=== PATIENT | male | born 1980 | race Caucasian/White ===

== ENCOUNTER 2017-01-16 12:25 | Inpatient (IN) | payer OTHER ==
[2017-01-16 15:21] VITALS: BMI 21.9
--- NOTE | 2017-01-16 17:03 | HP ---
COWS - Scale Resting Pulse: 4= HI > 121 Sweatin=Flushed/Facial Moisture Restless Observation: 3= Extraneous Movement Pupil Size: 2= Moderately Dilated Bone or Joint Aches: 2= Severe Diffuse Aches Runny Nose/ Eye Tearin= Runny Nose/Eyes GI Upset > 30mins: 3= Vomiting/Diarrhea Tremor Observation: 2= Slight Tremor Visible Yawning Observation: 2= >3x During Session Anxiety or Irritability: 2=Irritable/Anxious Goose Flesh Skin: 0=Smooth Skin COWS Score: 24 CIWA Score - CIWA Score Nausea/Vomitin Muscle Tremors: 3 Anxiety: 3 Agitation: 3 Paroxysmal Sweats: 2 Orientation: 0-Oriented Tacttile Disturbances: 2-Mild Itch/Numbness/Burn Auditory Disturbances: 2-Mild Harshness/Frighten Visual Disturbances: 2-Mild Sensitivity Headache: 2-Mild CIWA-Ar Total Score: 22 Admission ROS S - HPI Chief Complaint: i ma here for detox from heroin,cocaine,alcohol,xanax Allergies/Adverse Reactions: Allergies Allergy/AdvReac Type Severity Reaction Status Date / Time No Known Allergies Allergy Verified 01/16/17 16:55 History of Present Illness: this 36 years old male with heroin,alcohol,cocaine,xanax dependence,withdrawal symptom,[id number] admissions in detox,syncope no significant period of sobriety Exam Limitations: No Limitations - Ebola screening Have you traveled outside of the country in the last 21 days: No Have you had contact with anyone from an Ebola affected area: No Have you been sick,other than usual withdrawal symptoms: No - Review of Systems Constitutional: Chills, Diaphoresis, Loss of Appetite, Malaise, Night Sweats, Changes in sleep, Weakness, Unintentional Wgt. Loss EENT: reports: Tearing, Nose Congestion Respiratory: reports: No Symptoms reported Cardiac: reports: Palpitations GI: reports: Blood Streaked Bowels, Diarrhea, Vomiting, Abdominal cramping : reports: No Symptoms Reported Musculoskeletal: reports: Back Pain, Joint Pain, Muscle Pain, Joint Stiffness Integumentary: reports: Dryness Neuro: reports: Headache, Tremors Endocrine: reports: No Symptoms Reported Hematology: reports: No Symptoms Reported Psychiatric: reports: Mood/Affect Appropiate (ptsd), Anxious, Depressed Other Systems: Reviewed and Negative Patient History - Patient Medical History Hx Anemia: No Hx Asthma: No Hx Chronic Obstructive Pulmonary Disease (COPD): No Hx Cancer: No Hx Cardiac Disorders: No Hx Congestive Heart Failure: No Hx Hypertension: No Hx Hypercholesterolemia: No Hx Pacemaker: No HX Cerebrovascular Accident: No Hx Seizures: No Hx Dementia: No Hx Diabetes: No Hx Gastrointestinal Disorders: No Hx Liver Disease: No Hx Genitourinary Disorders: No Hx Sexually Transmitted Disorders: No Hx Renal Disease (ESRD): No Hx Thyroid Disease: No Hx Human Immunodeficiency Virus (HIV): No (last tested 09/03 negative) Hx Hepatitis C: No Hx Depression: No Hx Suicide Attempt: No Hx Bipolar Disorder: No Hx Schizophrenia: No Other Medical History: ptsd,no suicidal,no homicidal,varicose veins both legs - Patient Surgical History Past Surgical History: Yes Hx Neurologic Surgery: No Hx Cataract Extraction: No Hx Cardiac Surgery: No Hx Lung Surgery: No Hx Breast Surgery: No Hx Breast Biopsy: No Hx Abdominal Surgery: No Hx Appendectomy: No Hx Cholecystectomy: No Hx Genitourinary Surgery: No Hx Section: No Hx Orthopedic Surgery: No Other Surgical History: VARICOSE VEIN STRIPPING 2012 both Anesthesia Reaction: No - PPD History Previous Implant?: Yes Documented Results: Negative w/o proof Implanted On Prior [facility] Admission?: Yes Date: 11/16/15 Results: 0 PPD to be Administered?: Yes - Smoking Cessation Smoking history: Current every day smoker Have you smoked in the past 12 months: Yes Aproximately how many cigarettes per day: 20 Cigars Per Day: 0 Hx Chewing Tobacco Use: No Initiated information on smoking cessation: Yes 'Breaking Loose' booklet given: 01/16/17 - Substance & Tx. History Hx Alcohol Use: Yes Hx Substance Use: Yes Substance Use Type: Alcohol, Cocaine, Heroin, Tranquilizers Hx Substance Use Treatment: Yes ([facility] 2016) - Substances Abused Heroin Route: Injection Frequency: Daily Amount used: 20 bags Age of first use: 24 Date of Last Use: 01/16/17 Cocaine Route: Injection Frequency: Daily Amount used: 10 bags Age of first use: 19 Date of Last Use: 01/16/17 Alprazolam (Xanax) Route: Oral Frequency: Daily Amount used: 5-6 pills Age of first use: 16 Date of Last Use: 01/15/17 Alcohol Route: Oral Frequency: Daily Amount used: 2 12 oz beers Age of first use: 15 Date of Last Use: 01/14/17 Family Disease History - Family Disease History Family History: Denies Admission Physical Exam [facility] - Vital Signs Vital Signs: Vital Signs - 24 hr 01/16/17 15:19 Temperature 97 F L Pulse Rate 129 H Respiratory 20 Rate Blood Pressure 112/89 - Physical General Appearance: Yes: Moderate Distress, Tremorous, Irritable, Sweating, Anxious HEENTM: Yes: Within Normal Limits, Normal ENT Inspection, MIKE, Pharynx Normal Respiratory: Yes: Lungs Clear, Normal Breath Sounds, No Respiratory Distress Neck: Yes: Within Normal Limits, Supple, Trachea in good position Breast: Yes: Within Normal Limits Cardiology: Yes: Within Normal Limits, Tachycardia Abdominal: Yes: Within Normal Limits, Normal Bowel Sounds, Non Tender, Flat, Soft Genitourinary: Yes: Within Normal Limits Back: Yes: Normal Inspection, CVA Tenderness (R), Muscle Spasm Musculoskeletal: Yes: Back pain, Joint Stiffness, Muscle Pain Extremities: Yes: Normal Inspection, Normal Range of Motion, Tremors Neurological: Yes: fermentologist II-XII NML intact, Alert, Motor Strength 5/5 Integumentary: Yes: Within Normal Limits, Dry Lymphatic: Yes: Within Normal Limits - Diagnostic (1) Cocaine dependence Current Visit: No Status: Acute (2) Hepatitis C Current Visit: No Status: Acute (3) Opioid dependence with withdrawal Current Visit: No Status: Acute (4) Uncomplicated sedative, hypnotic or anxiolytic withdrawal Current Visit: No Status: Acute (5) Weight decreased Current Visit: No Status: Acute (6) Alcohol dependence with uncomplicated withdrawal Current Visit: Yes Status: Acute (7) Nicotine dependence Current Visit: Yes Status: Acute Cleared for Admission [facility] - Detox or Rehab [facility] Level of Care: Medically Managed Detox Regimen/Protocol: Methadone/Valium [facility] Breath Alcohol Content Breath Alcohol Content: 0 Urine Drug Screen - Results Drug Screen Negative: No Urine Drug Screen Results: TOMÁS-Cocaine, OPI-Opiates, MET-Methamphetamine, MTD- Methadone
[2017-01-16] MEDS ORDERED: guaiFENesin/D-METHORPHAN HB 10 ML UNIT-DOSE CUPS PO PRN (17:19)
[2017-01-16] MEDS ORDERED: MENTHOL/PHENOL 1 EACH UD MM PRN (17:19)
[2017-01-16] MEDS ORDERED: MAGNESIUM HYDROX 2400MG/30ML ORAL SUSPENSION 30 ML CUP PO PRN (17:19)
[2017-01-16] MEDS ORDERED: P-EPHED 60MG/TRIPROLIDI 2.5MG TABLET PO PRN (17:19)
[2017-01-16] MEDS ORDERED: LOPERAMIDE HCL 2 MG CAPSULE PO PRN (17:19)
[2017-01-16] MEDS ORDERED: MAGNESIUM CITRATE 300 ML BOTTLE PO PRN (17:19)
[2017-01-16] MEDS ORDERED: METHADONE HCL 10 MG TABLET (FOR DETOX USE ONLY) PO ONE ×2 (17:19→23:00)
[2017-01-16] MEDS ORDERED: MAG HYDROX/AL HYDROX/SIMETH 30 ML UNIT-DOSE CUP PO PRN (17:19)
[2017-01-16] MEDS ORDERED: diazePAM 5 MG TABLET PO ONE (18:00)
[2017-01-16] MEDS: THIAMINE HCL 100 MG TABLET (FP) PO SCH (22:15)
[2017-01-16] MEDS: diazePAM 5 MG TABLET PO SCH (22:15)
[2017-01-17] MEDS: diazePAM 5 MG TABLET PO SCH ×3 (05:37→22:03)
[2017-01-17] MEDS: PRENATAL VITAMINS W/ FOLIC ACID TABLET (FP) PO SCH (09:51)
[2017-01-17] MEDS: diazePAM 5 MG TABLET PO PRN ×2 (09:51→17:41)
--- NOTE | 2017-01-17 09:54 | EKG ---
Test Reason : Blood Pressure : / mmHG Vent. Rate : 079 BPM Atrial Rate : 079 BPM P-R Int : 132 ms QRS Dur : 086 ms QT Int : 378 ms P-R-T Axes : 055 038 040 degrees QTc Int : 433 ms NORMAL SINUS RHYTHM POSSIBLE LEFT ATRIAL ENLARGEMENT NO PREVIOUS ECGS AVAILABLE Confirmed by MARYBETH BURNETT MD ([id number]) on 01/17/2017 9:54:21 AM Referred By: Confirmed By:MARYBETH BURNETT MD
[2017-01-17] MEDS ORDERED: METHADONE HCL 10 MG TABLET (FOR DETOX USE ONLY) PO SCH (10:00)
--- NOTE | 2017-01-17 10:16 | PN ---
[facility] CIWA - CIWA Score Nausea/Vomitin-No Nausea/No Vomiting Muscle Tremors: 4-Moderate,w/Arms Extend Anxiety: 4-Mod. Anxious/Guarded Agitation: 4-Moderately Restless Paroxysmal Sweats: 1-Minimal Palms Moist Orientation: 0-Oriented Tacttile Disturbances: 3-Moderate Itch/Numb/Burn Auditory Disturbances: 0-None Visual Disturbances: 0-None Headache: 0-None Present CIWA-Ar Total Score: 16 BHS COWS - Scale Resting Pulse: 0= [place] 80 or Below Sweatin= Chills/Flushing Restless Observation: 3= Extraneous Movement Pupil Size: 2= Moderately Dilated Bone or Joint Aches: 4=Acute Joint/Muscle Pain Runny Nose/ Eye Tearin= Nasal Congestion GI Upset > 30mins: 1= Stomach Cramp Tremor Observation of Outstretched Hands: 2= Slight Tremor Visible Yawning Observation: 1= 1-2x During Session Anxiety or Irritability: 2=Irritable/Anxious Goose Flesh Skin: 0=Smooth Skin COWS Score: 17 S Progress Note (SOAP) Subjective: ANXIETY,TREMORS,SWEATS,INTERMITTENT SLEEP Objective: 01/17/17 10:15 Vital Signs Temperature 97 F L 01/17/17 06:43 Pulse Rate 53 L 01/17/17 06:43 Respiratory Rate 16 01/17/17 06:43 Blood Pressure 92/65 01/17/17 06:43 O2 Sat by Pulse Oximetry (%) LABS PENDING Assessment: 01/17/17 10:15 WITHDRAWAL SX Plan: CONTINUE DETOX
[2017-01-17 10:25] LABS: MCH 29.5 pg (25.7-33.7); MCHC 33.4 g/dl (32.0-35.9); MEAN CELL VOLUME 88.3 fl (80-96); MEAN PLT VOLUME 8.5 fl (7.5-11.1); PLATELET COUNT 166 K/MM3 (134-434); RDW 13.6 % (11.9-15.9); WHITE BLOOD COUNT 6.7 K/mm3 (4.0-10.0)
[2017-01-17 10:32] LABS: ALBUMIN 3.4 g/dl (3.4-5.0); ANION GAP 8 (8-16); CALCIUM 8.7 mg/dL (8.5-10.1); CO2 30 mmol/L (21-32); COCKROFT - GAULT 84.99; CREATININE 1.1 mg/dL (0.7-1.3); GLUCOSE,RANDOM 106 mg/dL (74-106); SGOT/AST 17 U/L (15-37); SGPT/ALT 22 U/L (12-78)
[2017-01-17 10:34] LABS: ALK PHOS 58 U/L (45-117); BILIRUBIN,TOTAL 0.3 mg/dL (0.2-1.0)
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
[2017-01-17] MEDS: ACETAMINOPHEN 325 MG TABLET (FP) PO PRN (13:13)
[2017-01-17] MEDS: THIAMINE HCL 100 MG TABLET (FP) PO SCH (22:03)
[2017-01-18] MEDS: diazePAM 5 MG TABLET PO PRN ×3 (05:35→16:55)
[2017-01-18] MEDS: IBUPROFEN 400 MG TABLET (FP) PO PRN (05:55)
[2017-01-18] MEDS: PRENATAL VITAMINS W/ FOLIC ACID TABLET (FP) PO SCH (10:01)
[2017-01-18] MEDS: diazePAM 5 MG TABLET PO SCH ×2 (10:01→22:29)
[2017-01-18] MEDS: METHADONE HCL 5 MG TABLET (FOR DETOX USE ONLY) PO SCH (10:02)
--- NOTE | 2017-01-18 15:58 | PN ---
S CIWA - CIWA Score Nausea/Vomitin-No Nausea/No Vomiting Muscle Tremors: 3 Anxiety: 4-Mod. Anxious/Guarded Agitation: 1-Slight > Activity Paroxysmal Sweats: 4-Forehead w/Sweat Beads Orientation: 2-Disoriented Date<2 days Tacttile Disturbances: 0-None Auditory Disturbances: 0-None Visual Disturbances: 2-Mild Sensitivity Headache: 3-Moderate CIWA-Ar Total Score: 19 BHS COWS - Scale Resting Pulse: 0= [place] 80 or Below Sweatin=Flushed/Facial Moisture Restless Observation: 1= Difficult to Sit Still Pupil Size: 0= Normal to Room Light Bone or Joint Aches: 2= Severe Diffuse Aches Runny Nose/ Eye Tearin= Runny Nose/Eyes GI Upset > 30mins: 1= Stomach Cramp Tremor Observation of Outstretched Hands: 2= Slight Tremor Visible Yawning Observation: 2= >3x During Session Anxiety or Irritability: 2=Irritable/Anxious Goose Flesh Skin: 0=Smooth Skin COWS Score: 14 S Progress Note (SOAP) Subjective: Interrupted sleep, H/A, Body Aches, Sweating. Objective: PT. A & O X 2 (DISORIENTED ABOUT DAY / DATE). PT. OBSERVED AMBULATING ON UNIT. NO ACUTE DISTRESS. 01/18/17 15:57 Vital Signs Temperature 98.4 F 01/18/17 09:54 Pulse Rate 60 01/18/17 13:01 Respiratory Rate 20 01/18/17 13:01 Blood Pressure 90/64 01/18/17 13:01 O2 Sat by Pulse Oximetry (%) Laboratory Tests 01/17/17 01/17/17 01/17/17 06:00 07:50 07:50 WBC 6.7 D RBC 4.21 Hgb 12.4 Hct 37.1 MCV 88.3 MCHC 33.4 RDW 13.6 Plt Count 166 MPV 8.5 Sodium 144 Potassium 4.0 Chloride 106 Carbon Dioxide 30 Anion Gap 8 BUN 16 Creatinine 1.1 D Creat Clearance w eGFR > 60 Random Glucose 106 D Calcium 8.7 Total Bilirubin 0.3 D AST 17 D ALT 22 D Alkaline Phosphatase 58 Total Protein 6.0 L Albumin 3.4 RPR Titer Nonreactive LABS NOTED. Assessment: 01/18/17 15:57 WITHDRAWAL SYMPTOMS. Plan: CONTINUE DETOX. INCREASE PO FLUID INTAKE.
[2017-01-18] MEDS: ACETAMINOPHEN 325 MG TABLET (FP) PO PRN (16:56)
[2017-01-18 20:53] LABS: URINE APPEARANCE CLEAR; URINE BILIRUBIN NEGATIVE (NEGATIVE); URINE BLOOD NEGATIVE (NEGATIVE); URINE COLOR YELLOW; URINE GLUCOSE (UA) NEGATIVE (NEGATIVE); URINE KETONE NEGATIVE (NEGATIVE); URINE LEUK ESTERASE NEGATIVE (NEGATIVE); URINE NITRITE NEGATIVE (NEGATIVE); URINE PROTEIN NEGATIVE (NEGATIVE); URINE UROBILINOGEN NEGATIVE E.U./dl (0.2-1.0)
[2017-01-18] MEDS: THIAMINE HCL 100 MG TABLET (FP) PO SCH (22:29)
[2017-01-18] MEDS: diphenhydrAMINE HCL 50 MG CAPSULE PO PRN (22:29)
[2017-01-19] MEDS: diazePAM 5 MG TABLET PO PRN ×2 (03:15→14:53)
[2017-01-19] MEDS: PRENATAL VITAMINS W/ FOLIC ACID TABLET (FP) PO SCH (10:01)
[2017-01-19] MEDS: METHADONE HCL 5 MG TABLET (FOR DETOX USE ONLY) PO SCH (10:02)
[2017-01-19] MEDS: diazePAM 5 MG TABLET PO SCH ×2 (10:02→22:05)
--- NOTE | 2017-01-19 15:08 | PN ---
S Progress Note (SOAP) Subjective: Sweating, tremor, chills, nausea, interrupted sleep, headache Objective: 01/19/17 15:07 Last Vital Signs Temp Pulse Resp BP Pulse Ox 96.9 F L 58 L 18 104/67 01/19/17 13:54 01/19/17 13:54 01/19/17 13:54 01/19/17 13:54 Laboratory Tests 01/17/17 01/17/17 01/17/17 06:00 07:50 07:50 WBC 6.7 D RBC 4.21 Hgb 12.4 Hct 37.1 MCV 88.3 MCHC 33.4 RDW 13.6 Plt Count 166 MPV 8.5 Sodium 144 Potassium 4.0 Chloride 106 Carbon Dioxide 30 Anion Gap 8 BUN 16 Creatinine 1.1 D Creat Clearance w eGFR > 60 Random Glucose 106 D Calcium 8.7 Total Bilirubin 0.3 D AST 17 D ALT 22 D Alkaline Phosphatase 58 Total Protein 6.0 L Albumin 3.4 Urine Color Urine Appearance Urine pH Ur Specific [place] Urine Protein Urine Glucose (UA) Urine Ketones Urine Blood Urine Nitrite Urine Bilirubin Urine Urobilinogen Ur Leukocyte Esterase RPR Titer Nonreactive 01/18/17 16:30 WBC RBC Hgb Hct MCV MCHC RDW Plt Count MPV Sodium Potassium Chloride Carbon Dioxide Anion Gap BUN Creatinine Creat Clearance w eGFR Random Glucose Calcium Total Bilirubin AST ALT Alkaline Phosphatase Total Protein Albumin Urine Color Yellow Urine Appearance Clear Urine pH 6.0 Ur Specific [place] 1.025 Urine Protein Negative Urine Glucose (UA) Negative Urine Ketones Negative Urine Blood Negative Urine Nitrite Negative Urine Bilirubin Negative Urine Urobilinogen Negative Ur Leukocyte Esterase Negative RPR Titer Labs noted Assessment: 01/19/17 15:08 Withdrawal symptoms Plan: Continue detox
[2017-01-19] MEDS: IBUPROFEN 400 MG TABLET (FP) PO PRN (19:23)
[2017-01-19] MEDS: THIAMINE HCL 100 MG TABLET (FP) PO SCH (22:04)
[2017-01-19] MEDS: diphenhydrAMINE HCL 50 MG CAPSULE PO PRN (22:05)
[2017-01-20] MEDS ORDERED: hydrOXYzine PAMOATE 50 MG CAPSULE (FP) PO PRN (06:12)
[2017-01-20] MEDS ORDERED: diazePAM 5 MG TABLET PO SCH (10:00)
[2017-01-20] MEDS ORDERED: METHADONE HCL 10 MG TABLET (FOR DETOX USE ONLY) PO SCH (10:00)
[2017-01-20] MEDS: PRENATAL VITAMINS W/ FOLIC ACID TABLET (FP) PO SCH (10:04)
--- NOTE | 2017-01-20 13:23 | PN ---
[facility] Progress Note (SOAP) Subjective: Sweating,interrupted sleep,restless Objective: 01/20/17 13:22 Vital Signs - 8 hr 01/20/17 01/20/17 01/20/17 06:14 09:56 13:14 Temperature 96.8 F L 96.9 F L 96.9 F L Pulse Rate 58 L 58 L 60 Respiratory 18 18 18 Rate Blood Pressure 100/69 105/73 96/67 Laboratory Last Values WBC 6.7 K/mm3 (4.0-10.0) D 01/17/17 06:00 RBC 4.21 M/mm3 (4.00-5.60) 01/17/17 06:00 Hgb 12.4 GM/dL (11.7-16.9) 01/17/17 06:00 Hct 37.1 % (35.4-49) 01/17/17 06:00 MCV 88.3 fl (80-96) 01/17/17 06:00 MCHC 33.4 g/dl (32.0-35.9) 01/17/17 06:00 RDW 13.6 % (11.9-15.9) 01/17/17 06:00 Plt Count 166 K/MM3 (134-434) 01/17/17 06:00 MPV 8.5 fl (7.5-11.1) 01/17/17 06:00 Sodium 144 mmol/L (136-145) 01/17/17 07:50 Potassium 4.0 mmol/L (3.5-5.1) 01/17/17 07:50 Chloride 106 mmol/L (98-107) 01/17/17 07:50 Carbon Dioxide 30 mmol/L (21-32) 01/17/17 07:50 Anion Gap 8 (8-16) 01/17/17 07:50 BUN 16 mg/dL (7-18) 01/17/17 07:50 Creatinine 1.1 mg/dL (0.7-1.3) D 01/17/17 07:50 Creat Clearance w eGFR > 60 (>60) 01/17/17 07:50 Random Glucose 106 mg/dL (74-106) D 01/17/17 07:50 Calcium 8.7 mg/dL (8.5-10.1) 01/17/17 07:50 Total Bilirubin 0.3 mg/dL (0.2-1.0) D 01/17/17 07:50 AST 17 U/L (15-37) D 01/17/17 07:50 ALT 22 U/L (12-78) D 01/17/17 07:50 Alkaline Phosphatase 58 U/L (45-117) 01/17/17 07:50 Total Protein 6.0 g/dl (6.4-8.2) L 01/17/17 07:50 Albumin 3.4 g/dl (3.4-5.0) 01/17/17 07:50 Urine Color Yellow 01/18/17 16:30 Urine Appearance Clear 01/18/17 16:30 Urine pH 6.0 (5.0-8.0) 01/18/17 16:30 Ur Specific [place] 1.025 (1.005-1.025) 01/18/17 16:30 Urine Protein Negative (NEGATIVE) 01/18/17 16:30 Urine Glucose (UA) Negative (NEGATIVE) 01/18/17 16:30 Urine Ketones Negative (NEGATIVE) 01/18/17 16:30 Urine Blood Negative (NEGATIVE) 01/18/17 16:30 Urine Nitrite Negative (NEGATIVE) 01/18/17 16:30 Urine Bilirubin Negative (NEGATIVE) 01/18/17 16:30 Urine Urobilinogen Negative E.U./dl (0.2-1.0) 01/18/17 16:30 Ur Leukocyte Esterase Negative (NEGATIVE) 01/18/17 16:30 RPR Titer Nonreactive (NONREACTIVE) 01/17/17 07:50 labs noted Assessment: 01/20/17 13:22 Withdrawal sx. Plan: Continue detox
[2017-01-20] MEDS: THIAMINE HCL 100 MG TABLET (FP) PO SCH (22:04)
[2017-01-20] MEDS: diphenhydrAMINE HCL 50 MG CAPSULE PO PRN (22:04)
[2017-01-21] MEDS ORDERED: METHADONE HCL 5 MG TABLET (FOR DETOX USE ONLY) PO SCH (06:00)
[2017-01-21 06:43] VITALS: BP 97/63; PULSE 53; TEMP 97.1
--- NOTE | 2017-01-21 10:57 | DS ---
[facility] Detox Discharge Summary Admission Date: 01/16/17 Discharge Date: 01/21/17 - History Present History: Alcohol Dependence Additional Comments: DETOX COMPLETED. ALERT O X 3. NAD. Pertinent Past History: HEP C PTSD - Physical Exam Results Vital Signs: Vital Signs Temperature 97.1 F L 01/21/17 06:42 Pulse Rate 53 L 01/21/17 06:42 Respiratory Rate 16 01/21/17 06:42 Blood Pressure 97/63 01/21/17 06:42 O2 Sat by Pulse Oximetry (%) Pertinent Admission Physical Exam Findings: WITHDRAWAL SX - Treatment Hospital Course: Detox Protocol Followed, Detoxed Safely, Responded well, Discharged Condition Good - Medication Discharge Medications: Ambulatory Orders NK [No Known Home Medication] 11/14/15 - AMA Did Patient Leave Against Medical Advice: No
== END 2017-01-21 09:37 | disposition home or self-care (01) | DRG 773 ==
LOC: YASAS 12:25 → Y3N 17:54
PROVIDERS: ADMIT Internal Medicine; ATTEND Internal Medicine
PROC: HZ2ZZZZ Detoxification Services for Substance Abuse Treatment (ICD-10-PCS; principal; 2017-01-21)
DX: F11.23 Opioid dependence with withdrawal (principal); F13.230 Sedative, hypnotic or anxiolytic dependence with withdrawal, uncomplicated; F10.230 Alcohol dependence with withdrawal, uncomplicated; F17.210 Nicotine dependence, cigarettes, uncomplicated; F43.10 Post-traumatic stress disorder, unspecified; B18.2 Chronic viral hepatitis C; R63.4 Abnormal weight loss; Z68.21 Body mass index [BMI] 21.0-21.9, adult
CPT/HCPCS: 36415; 80053; 81003; 85027; 86593; 93005; 93010